=== PATIENT | male | born 1945 | race Caucasian/White ===

== ENCOUNTER 2017-02-05 10:10 | Day surgery (SDC) | payer MEDICARE, OTHER ==
--- NOTE | ~2017-02-05 | EGD ---
EGD REPORT [facility] [address] [place] [address] NAME: TOBIAS HURLEY : [birth year] STATUS : REG [facility]#: [id number] AGE: 71 ADM/REG DATE : 02/05/17 MR#: [id number] REPORT SERV DATE: 02/05/17 DICTATED BY: MARY PORTILLO DATE: 02/05/17 REPORT STATUS : Draft [facility] DATE: 02/05/17 Endoscopy Center Patient Name: Tobias Hurley Date of : 1945 Attending MD: MARY PORTILLO MD Procedure Date No Time: 02/05/2017 Procedure: Upper GI endoscopy Indications: Gastro-esophageal reflux disease Referring MD: JEMIMA STAPLES Medicines: See the Anesthesia note for documentation of the administered medications Complications: No immediate complications. Procedure: Pre-Anesthesia Assessment: - ASA Grade Assessment: IV - A patient with severe systemic disease that is a constant threat to life. After obtaining informed consent, the endoscope was passed under direct vision. Throughout the procedure, the patient's blood pressure, pulse, and oxygen saturations were monitored continuously. The GIF H190 [id number] was introduced through the mouth, and advanced to the second part of duodenum. The upper GI endoscopy was accomplished without difficulty. The patient tolerated the procedure well. Findings: The examined duodenum was normal. Mild inflammation was found in the gastric antrum. Biopsies were taken with a cold forceps for histology. The cardia and gastric fundus were normal on retroflexion. A small hiatus hernia was present. Impression: - Normal examined duodenum. - Gastritis. Biopsied. - Hiatus hernia. Recommendation: - Patient has a contact number available for emergencies. The signs and symptoms of potential delayed complications were discussed with the patient. Return to normal activities tomorrow. Written discharge instructions were provided to the patient. - Regular diet. - Continue present medications. - FOR YOUR BIOPSY RESULTS: Please go to [email or web address] and register to receive your results via the portal. Your biopsy results will be EGD REPORT [address] [address] NAME: TOBIAS HURLEY : [birth year] [place] [facility] [place] [id number] AGE: 71 ADM/REG DATE : 02/05/17 MR#: [id number] REPORT SERV DATE: 02/05/17 DICTATED BY: MARY PORTILLO DATE: 02/05/17 REPORT STATUS : Draft TRANSCRIBED BY: [employer] DATE: 02/05/17 posted there in about 7 to 10 days. IF you do not see result in 10 days, call office. Procedure Code(s): --- Professional --- 70143, Esophagogastroduodenoscopy, flexible, transoral; with biopsy, single or multiple Diagnosis Code(s): --- Professional --- K29.70, Gastritis, unspecified, without bleeding K44.9, Diaphragmatic hernia without obstruction or gangrene K21.9, Gastro-esophageal reflux disease without esophagitis CPT copyright 2013 [employer]. All rights reserved. The codes documented in this report are preliminary and upon medical coder review may be revised to meet current compliance requirements. Mary Portillo MD MARY PORTILLO MD 02/05/2017 12:04 PM This report has been signed electronically. Number of Addenda: 0 Note Initiated On: 02/05/2017 11:55 AM Scope Withdrawal Time 0 hours 0 minutes 0 seconds [address] [place] [address]
--- NOTE | ~2017-02-05 | EGD ---
EGD REPORT [facility] [address] [place] [address] NAME: TOBIAS HURLEY : [birth year] STATUS : REG [facility]#: [id number] AGE: 71 ADM/REG DATE : 02/05/17 MR#: [id number] REPORT SERV DATE: 02/05/17 DICTATED BY: MARY PORTILLO DATE: 02/05/17 REPORT STATUS : Draft [facility] DATE: 02/05/17 Endoscopy Center Patient Name: Tobias Hurley Date of : 1945 Attending MD: MARY PORTILLO MD Procedure Date No Time: 02/05/2017 Procedure: Colonoscopy Indications: High risk colon cancer surveillance: Ulcerative colitis, Last colonoscopy: April 2012 Referring MD: JEMIMA STAPLES Medicines: See the Anesthesia note for documentation of the administered medications Complications: No immediate complications. Procedure: Pre-Anesthesia Assessment: - ASA Grade Assessment: IV - A patient with severe systemic disease that is a constant threat to life. After I obtained informed consent, the scope was passed under direct vision. Throughout the procedure, the patient's blood pressure, pulse, and oxygen saturations were monitored continuously. The PCF [id number] was introduced through the anus and advanced to the cecum, identified by appendiceal orifice and ileocecal valve. The colonoscopy was performed without difficulty. The patient tolerated the procedure well. The quality of the bowel preparation was adequate. Findings: The perianal and digital rectal examinations were normal. A few diverticula were found in the ascending colon. Internal hemorrhoids were found during retroflexion and were small. The ascending colon appeared normal. Biopsies were taken with a cold forceps for histology. The transverse colon appeared normal. Biopsies were taken with a cold forceps for histology. Chronic scarring in proximal transverse colon, Biopsies were taken with a cold forceps for histology. Mild active colitis in descending colon, Biopsies were taken with a cold forceps for histology. Mild active colitis in sigmoid, Biopsies were taken with a cold forceps for histology. Mucosal scarring in rectum, Biopsies were taken with a cold forceps for histology. Impression: - Diverticulosis in the ascending colon. - Internal hemorrhoids. EGD REPORT [address] [address] NAME: TOBIAS HURLEY : [birth year] STATUS : REG [facility] [place] PAT#: [id number] AGE: 71 ADM/REG DATE : 02/05/17 MR#: [id number] REPORT SERV DATE: 02/05/17 DICTATED BY: MARY PORTILLO DATE: 02/05/17 REPORT STATUS : Draft TRANSCRIBED BY: [employer] DATE: 02/05/17 - The ascending colon is normal. Biopsied. - The transverse colon is normal. Biopsied. - Chronic scarring in proximal transverse colon - Mild active colitis in descending colon - Mild active colitis in sigmoid - Mucosal scarring in rectum Recommendation: - Patient has a contact number available for emergencies. The signs and symptoms of potential delayed complications were discussed with the patient. Return to normal activities tomorrow. Written discharge instructions were provided to the patient. - Regular diet. - Continue present medications. - Repeat colonoscopy for surveillance based on pathology results. - FOR YOUR BIOPSY RESULTS: Please go to [email or web address] and register to receive your results via the portal. Your biopsy results will be posted there in about 7 to 10 days. IF you do not see result in 10 days, call office. Procedure Code(s): --- Professional --- 79506, Colonoscopy, flexible, proximal to splenic flexure; with biopsy, single or multiple Diagnosis Code(s): --- Professional --- K64.8, Other hemorrhoids K57.30, Diverticulosis of large intestine without perforation or abscess without bleeding K51.90, Ulcerative colitis, unspecified, without complications CPT copyright 2013 [employer]. All rights reserved. The codes documented in this report are preliminary and upon lcsw review may be revised to meet current compliance requirements. Mary Portillo MD MARY PORTILLO MD 02/05/2017 12:26 PM This report has been signed electronically. Number of Addenda: 0 Note Initiated On: 02/05/2017 11:52 AM EGD REPORT [facility] [address] [address] NAME: TOBIAS HURLEY : [birth year] STATUS : REG [facility] [place] PAT#: [id number] AGE: 71 ADM/REG DATE : 02/05/17 MR#: [id number] REPORT SERV DATE: 02/05/17 DICTATED BY: MARY PORTILLO DATE: 02/05/17 REPORT STATUS : Draft TRANSCRIBED BY: [employer] DATE: 02/05/17 Scope Withdrawal Time 0 hours 9 minutes 13 seconds [address] [place] [address]
[~2017-02-05 10:10] MED LIST: AMMONIUM LAC122 TOP; APRISO0.375 GM; APRISO0.375 GM PO; ASAB PO; ASACOL; ASACOL PO; ASCOL PO; ASCRIPTIN PO; C5 PO; CO Q-10100 MG PO; CO Q-10200 MG PO; COZAAR100 MG PO; CRESTOR5 MG PO; DIOVAN HC1 PO; DIOVAN HC2 PO; FISH-EPA1000 MG PO; FLONASE NAS; HYDROCHLOROT12.5 MG PO; IMDUR120 PO; IMDUR30 PO; IMDUR60 PO; LEVOTHYROXIN88 MCG PO; LIPITOR20 PO; LOP25 PO; MULTIVITAMI1 PO; NATURL FIBER68 % PO; NIACIN 500 PO; NITROSTAT0.4 MG SL; PLAVIX PO; PRIN10 PO; PRIN20 PO; PROTONIX PO; PROVHFA INH; RAN500 PO; RANEXA1000 MG PO; SPIRIVA INH; SYMBICORT 160/41 INH INH; SYMBICORT 80/4.1 INH INH; SYN.05 PO; SYN075 PO; TAMBO50 PO; TEARS NATURA OPH; TOPXL25 PO; VITAMIN D31000 UNIT PO; VITAMIN D400 UNI1 PO; VITD PO; VITE PO; XALAT OPH; Z100 PO; Z300 PO; ZESTORETIC PO; ZINC 50MG TABLET PO; ZYRTEC ALLGY10 MG PO; [UNRECOGNIZED DRUG - OTHER]; [UNRECOGNIZED DRUG - OTHER] EX; [UNRECOGNIZED DRUG - OTHER] PO; [UNRECOGNIZED DRUG - OTHER] PO
== END 2017-02-05 23:59 | disposition home or self-care (01) ==
LOC: DMU 10:10
PROVIDERS: Internal Medicine Gastroenterology
PROC: 0DBN8ZX Excision of Sigmoid Colon, Via Natural or Artificial Opening Endoscopic, Diagnostic (ICD-10-PCS; 2017-02-05)
PROC: 0DBP8ZX Excision of Rectum, Via Natural or Artificial Opening Endoscopic, Diagnostic (ICD-10-PCS; 2017-02-05)
PROC: 0DBL8ZX Excision of Transverse Colon, Via Natural or Artificial Opening Endoscopic, Diagnostic (ICD-10-PCS; 2017-02-05)
PROC: 0DB68ZX Excision of Stomach, Via Natural or Artificial Opening Endoscopic, Diagnostic (ICD-10-PCS; principal; 2017-02-05 12:00)
PROC: 0DBK8ZX Excision of Ascending Colon, Via Natural or Artificial Opening Endoscopic, Diagnostic (ICD-10-PCS; 2017-02-05 12:00)
DX: Z12.11 Encounter for screening for malignant neoplasm of colon (principal); K63.3 Ulcer of intestine; K57.30 Diverticulosis of large intestine without perforation or abscess without bleeding; K64.8 Other hemorrhoids; K44.9 Diaphragmatic hernia without obstruction or gangrene; K21.9 Gastro-esophageal reflux disease without esophagitis; Z86.73 Personal history of transient ischemic attack (TIA), and cerebral infarction without residual deficits; I25.10 Atherosclerotic heart disease of native coronary artery without angina pectoris; I48.91 Unspecified atrial fibrillation; G47.33 Obstructive sleep apnea (adult) (pediatric); Z88.2 Allergy status to sulfonamides; Z88.8 Allergy status to other drugs, medicaments and biological substances; Z87.891 Personal history of nicotine dependence; Z98.890 Other specified postprocedural states; Z98.42 Cataract extraction status, left eye; Z98.41 Cataract extraction status, right eye
CPT/HCPCS: 88305; J0360